=== PATIENT | male | born 1945 | race Caucasian/White ===

== ENCOUNTER → 2019-08-16 | Outpatient (CLI) | payer OTHER | LOC: SJCVCIMAG 12:41 | DX: I71.4 Abdominal aortic aneurysm, without rupture (principal); I65.21 Occlusion and stenosis of right carotid artery; R94.31 Abnormal electrocardiogram [ECG] [EKG]; I73.9 Peripheral vascular disease, unspecified; I25.10 Atherosclerotic heart disease of native coronary artery without angina pectoris; I10 Essential (primary) hypertension; E78.00 Pure hypercholesterolemia, unspecified; Z79.899 Other long term (current) drug therapy; Z82.49 Family history of ischemic heart disease and other diseases of the circulatory system; Z87.891 Personal history of nicotine dependence; Z95.828 Presence of other vascular implants and grafts ==

== ENCOUNTER 2020-04-06 18:45 | Inpatient (IN) | payer OTHER ==
[~2020-04-06] VITALS: Ht 177.8 cm; Wt 89.0 kg
--- NOTE | ~2020-04-06 | O ---
[address] [address] OPERATIVE REPORT Name: BARBY HOFFMAN Room #: 441-P [facility] IN M.R.#: [id number] Admission: 04/06/20 Attend Phys: Elkin Pedroza MD Discharge: Date of : 43 Report #: [id number] THIS REPORT FOR: cc: Dwayne Zelyaa,Pb Hall MD ~ CC: Elkin Zelaya DO DATE OF SERVICE: 04/14/2020 PRIMARY SURGEON: Pb Sainz MD PREOPERATIVE DIAGNOSES: 1. Chronic respiratory failure. 2. Acute onset dysphonia. 3. Right vocal cord paralysis. 4. Supplemental oxygen dependence. POSTOPERATIVE DIAGNOSES: 1. Chronic respiratory failure. 2. Acute onset dysphonia. 3. Right vocal cord paralysis. 4. Supplemental oxygen dependence. PROCEDURES PERFORMED: 1. Direct laryngoscopy with biopsy. 2. Rigid bronchoscopy. ANESTHESIA: General endotracheal anesthesia. ASSISTANTS: None. COMPLICATIONS: None. SPECIMENS: Right supraglottis. ESTIMATED BLOOD LOSS: Approximately 2 mL. INDICATIONS FOR THE PROCEDURE: The patient is a 75-year-old male with a long and complex medical history, who was admitted to the hospital approximately 1 week ago with acute worsening of his COPD and increasing hoarseness. A consultation was called for ear, nose and throat and a bedside flexible laryngoscopy revealed right vocal cord paralysis and slight fullness of the [address] [place] [address] OPERATIVE REPORT Name: BARBY HOFFMAN Room #: 441-P [facility] IN .R.#: [id number] Admission: 04/06/20 Attend Phys: Elkin Pedroza MD Discharge: Date of : 44 Report #: [id number] false vocal cord. Correlation with the CT scan of the neck also revealed thickness of the right false vocal cord and aryepiglottic fold prompting me to schedule him for the above named procedures. Consent was obtained. DESCRIPTION OF PROCEDURE: The patient was identified in the preoperative area before being transported to the operating room and placed supine on the operating table. At this point, propofol sedation was induced and a spontaneous ventilation rigid bronchoscopy was performed. The rigid ventilating bronchoscope was easily inserted through the patient's glottis. No obvious abnormality was seen at the level of the glottis, immediate subglottis or down to the level of the valdo. At this point, the rigid bronchoscope was removed and the patient was intubated with an 8.0 ET tube. Next. insertion of the Dedo laryngoscope into the oral cavity revealed very thick viscous secretions, which were suctioned free using laryngeal suction. A full intraoral oropharyngeal supraglottic, glottic and hypopharyngeal examination was performed, which did not reveal any obvious abnormalities. At this time, the laryngoscope was concentrated on the right supraglottis and false vocal cord area. There was slight fullness in this area; however, there were no obvious mucosal lesions; however, this was the area in question. Therefore, several cup forceps biopsies were taken along the anteroposterior length of the right false vocal cord and one specimen from the right aryepiglottic fold. These were passed off for permanent specimen. An Afrin-soaked cottonoid pledget was held in place for approximately 60 seconds time for hemostasis and at this time was removed. Further suctioning was performed followed by a final examination for hemostasis and for any other obvious lesions. There was none other that was identified. Therefore, the laryngoscope was removed and the patient was passed off back to anesthesia where he was successfully and safely reversed and transported to the PACU in stable condition. Please note that all instrument and sponge counts were correct x 2, and the patient was stable upon my departure from the room. DISPOSITION: The patient can be placed back on the medical floor under the care of his attending physician here in the hospital. Postoperative care can be dictated by the hospitalist as they see fit. There is no postoperative instructions that are necessary from my perspective. Permanent pathology will be reviewed of these specimens and will be reviewed with the patient once they are resulted. I will plan to follow up with the patient as an outpatient in approximately 7-14 days' time. The primary team may feel free to discharge the patient when they feel that he is stable and appropriate for discharge. No additional medications are necessary. Please provide operative summaries to my office, to the patient's primary care [address] [address] OPERATIVE REPORT Name: BARBY HOFFMAN Room #: 441-P [facility] IN M.R.#: [id number] Admission: 04/06/20 Attend Phys: Elkin Pedroza MD Discharge: Date of : 44 Report #: [id number] physician, Dr. Dwayne Zelaya and to the attending physician in[place], Dr. Elkin Pedroza. By: 1600 1624 Pb Sainz MD /arely
[~2020-04-06 18:45] MED LIST: ASPIRIN325 PO; EFFIENT10 MG PO; LIPITOR80 MG PO; LISINOPRIL10 MG PO; NORVASC 5 MG TAB5 MG PO; TOPROL XL25 MG PO
[2020-04-06 19:39] VITALS: BP 128/58
[2020-04-06 19:43] LABS: ABSOLUTE NEUTROPHILS 6.5 thou/uL (1.4-8.2); BASOPHILS 0.3 % (0.0-2.0); EOSINOPHILS 0.2 % (0.0-3.0); HEMATOCRIT 40.9 % (42.0-52.0); HEMOGLOBIN 13.9 gm/dL (14.0-18.0); LYMPHOCYTES 15.9 % (24.0-44.0); MCHC 33.9 g/dL (28.0-37.0); MCV 88.7 fL (80.0-100.0); MONOCYTES 8.4 % (1.0-8.0); PLATELET COUNT 221 thou/uL (150-400); POLYS 75.2 % (36.0-66.0); RBC 4.62 mil/uL (4.50-6.00); RDW 14.2 % (10.5-14.5); WBC 8.7 thou/uL (4.0-11.0)
[2020-04-06 19:59] LABS: ANION GAP 7 mmol/L (7-16); BUN 24 mg/dL (7-18); CALCIUM 9.1 mg/dL (8.5-10.1); CHLORIDE 103 mmol/L (98-107); CO2 29 mmol/L (21-32); CREATININE 1.3 mg/dL (0.7-1.3); GLUCOSE 194 mg/dL (74-106); POTASSIUM 3.3 mmol/L (3.5-5.1); SODIUM 139 mmol/L (136-145)
[2020-04-06 20:04] LABS: ALBUMIN 3.1 g/dL (3.4-5.0); SGOT 34 U/L (15-37); SGPT 34 U/L (30-65); TOTAL BILIRUBIN 1.7 mg/dL (0.2-1.0); TOTAL PROTEIN 7.8 g/dL (6.4-8.2); TROPONIN-I <0.06 ng/mL (<0.06)
[2020-04-06 21:34] LABS: APTT 40.7 Seconds (24.5-32.8); INR 1.2; PROTIME 12.8 Seconds (9.3-11.4)
[2020-04-06] MEDS ORDERED: ASA81BEC PO (21:38)
[2020-04-07] VITALS (7 sets, daily range): BP systolic 116–147; BP diastolic 42–71
[2020-04-07 07:12] LABS: HEMATOCRIT 39.8 % (42.0-52.0); HEMOGLOBIN 13.3 gm/dL (14.0-18.0); MCH 29.3 pg (26.0-34.0); MCHC 33.3 g/dL (28.0-37.0); RBC 4.53 mil/uL (4.50-6.00); RDW 14.2 % (10.5-14.5); WBC 4.9 thou/uL (4.0-11.0)
[2020-04-07 07:16] LABS: CALCIUM 8.8 mg/dL (8.5-10.1); CREATININE 1.2 mg/dL (0.7-1.3)
[2020-04-07 07:17] LABS: POTASSIUM 4.5 mmol/L (3.5-5.1)
--- NOTE | 2020-04-07 12:31 | EKG ---
[facility] [place] [address] ELECTROCARDIOGRAM REPORT Name: BARBY HOFFMAN Room #: 170-21 ADM IN M.R.#: [id number] Admission: 04/06/20 Attend Phys: Elkin Pedroza MD Discharge: Date of : 44 Report #: [id number] THIS REPORT FOR: cc: Dwayne Zelaya James A. DO Lundgren, Craig H. MD [facility] ~ THIS REPORT FOR: //name// [facility] ED Test Date: 2020-04-06 Test Time: 20:39:09 Pat Name: BARBY HOFFMAN Department: Room: 170 21 Gender: M Soft Boarder: BUTCHMSANA : 1945 Requested By: Elkin Pedroza Order Number: [id number] MD: Javier Neri Measurements Intervals [place] Rate: 78 P: 61 RI: 128 QRS: 25 QRSD: 116 T: 115 QT: 435 QTc: 496 Interpretive Statements Sinus rhythm Early R wave progression Nonspecific T abnormalities, lateral leads Compared to ECG 11/28/2012 07:38:01 T-wave abnormality now present Sinus bradycardia no longer present Electronically Signed On 04-07-2020 12:31:46 CDT by Javier Neri [email or web address] <ELECTRONICALLY SIGNED> By: Javier Neri MD, FACC 04/07/20 1231 38 38 Javier Neri MD, FACC /EPI
--- NOTE | 2020-04-07 16:51 | NUR ---
Admitted from ER due to SOA, transferred to bed safely. A+Ox4. Vital signs stable; O2 sat low- hooked pt to O2 at 2lpm via nasal cannula- informed RT as well. Admission assessment, history and education done; admission forms signed. On MS, not on telemetry; no complains of chest pain, crushing sensation and heaviness. On heart healthy diet- tolerating well; no nausea, no vomiting and no abdominal pain noted. With SL at L AC- on IV steroids. Up ad tacho. Assisted in ADLs. Daughter Charline updated re: pt's status; discussed to patient and daughter re: visitation policy- pt wanted daughter to be designated visitor- Charline agreed; informed re: visitation times as well, she is aware that no changes can be made afterwards. Skin intact. To continue monitoring patient.
--- NOTE | 2020-04-08 03:19 | NUR ---
PT WAS TRANSFERRED TO THE UNIT FROM CCU IN A STABLE CONDITION.PT DENIED PAIN.PT WAS NOTED TO HAVE SOB WITH EXERTION WITH ACTIVITY.PT VERY ADAMANT ON WALKING TO THE BR WAS EDUCATED TO USE THE BSC TO CONSERVE HIS ENERGY.PT ON 2L/NC.PT RECEIVING RX TX.NON PRODUCTIVE COUGH NOTED.PT RESTING ON HIS BED AT THIS TIME.CALL LIGHT WITHIN REACH.
[2020-04-08 05:23] VITALS: BP 123/57
[2020-04-08 07:30] VITALS: BP 125/45
[2020-04-08 13:57] VITALS: BP 125/53
[2020-04-08 16:30] VITALS: BP 115/41
--- NOTE | 2020-04-08 17:00 | NUR ---
ASSUMED CARE OF PT AT 0700. PT IS A&OX4 AND VITAL SIGNS ARE STABLE. PT ON 2-3L OF O2 THIS SHIFT. SITTING UP AT EDGE OF BED. DAUGHTER AT BEDSIDE THIS SHIFT, AND IS CONCERNED ABOUT DISCHARGE, REPORTS PT UNABLE TO DO MOST OF HIS OWN CARES AT HOME AND LIVES ALONE. IV TO LEFT AC PATENT. INSULIN ORDERD FOR ELEVATED BG. DAUGHTER OZZIE LIVING WILL TO UNIT AND PT REQUESTED TO HAVE CODE STATUS CHANGED TO DNR. PROVIDER MADE AWARE OF REQUEST AND CHANGED ORDER. FALL PRECAUTIONS IN PLACE AND NURSING WILL CONTINUE TO MONITOR.
[2020-04-08 19:34] VITALS: BP 127/60
--- NOTE | 2020-04-09 03:56 | NUR ---
ASSUMED PT'S CARE THIS PM SHIFT. PT ALERT AND ORIENTED. VSS ON 2L. PT TOOK MEDS PER EMAR. DENIES PAIN THIS SHIFT. SOA ON EXERTION. PT OCCASSIONALLY SITS AT THE EGDE OF BED FOR COMFORT BUT DOES BNOT SO ATTEMPT TO GET UP ON HIS OWN. EDUCATION REINFORCED ON FALL PREVENTION. FALL PRECAUTION IN PLACE. WILL CONTINUE TO MONITOR.
[2020-04-09 05:27] LABS: HEMATOCRIT 43.4 % (42.0-52.0); HEMOGLOBIN 14.4 gm/dL (14.0-18.0); MCH 29.5 pg (26.0-34.0); MCHC 33.1 g/dL (28.0-37.0); MCV 88.9 fL (80.0-100.0); RBC 4.88 mil/uL (4.50-6.00); RDW 14.6 % (10.5-14.5)
[2020-04-09 05:29] LABS: CALCIUM 9.1 mg/dL (8.5-10.1); CREATININE 1.3 mg/dL (0.7-1.3); MAGNESIUM 2.4 mg/dL (1.8-2.4)
[2020-04-09 05:40] LABS: POTASSIUM 4.1 mmol/L (3.5-5.1)
[2020-04-09 08:14] VITALS: BP 133/43
--- NOTE | 2020-04-09 15:13 | NUR ---
Assumed care of pt at 0700. Pt a&ox4. Sitting in the chair. Crackles heard. On 2L O2. Denies pain. Talked to pt's family and updated on pt's status. Call light within reach. Will continue to monitor.
[2020-04-09 15:44] VITALS: BP 126/42
[2020-04-09 19:28] VITALS: BP 136/66
[2020-04-09 21:12] VITALS: BP 136/66
[2020-04-10 03:59] VITALS: BP 127/55
--- NOTE | 2020-04-10 07:31 | NUR ---
PT AOX4. PT REPORTS 2/10 PAIN IN BOTH NARES DUE TO NASAL CANNULA USE. SALINE PROVIDED, PT REPORTS IMMEDIATE RELIEF. RT NOTIFIED, HUMIDIFIER TO BE APPLIED. PT HAS PRN PO APAP Q4HR AVAILABLE. PT REPORTS SOB AT REST AND WITH EXERTION WHILE ON 2L VIA NASAL CANNULA. PT NOTED TO HAVE PURSED LIP BREATHING. PT MAINTAINS UPRIGHT POSITION IN BED AND IN CHAIR. PT AMBULATES WITH STANDBY ASSIST FROM CHAIR TO BED. PT VOIDING PER URINAL. PT TOLERATING PO INTAKE OF FLUIDS AND HEART HEALTHY DIET. PT ENCOURAGED TO NOTIFY STAFF FOR ALL NEEDS. CALL LIGHT WITHIN REACH, BED ALARM ON, BED IN LOWEST POSITION, FREQUENT MONITORING WILL CONTINUE.
[2020-04-10 07:47] VITALS: BP 158/73
--- NOTE | 2020-04-10 11:38 | NUR ---
Assumed care of pt at 0700. Pt a&ox4. SOB with exersion. Denies pain. On 2L O2. Case management consulted. Chest x-ray ordered. Scheduled breathing treatments. Call light within reach. Will continue to monitor.
--- NOTE | 2020-04-10 15:25 | NUR ---
PT ADMITTED RELATED TO COPD EXACERBATION. CM REVIEWED CHART AND SPOKE WITH CARE TEAM. CM MET WITH PT AT BEDSIDE THIS DAY. PT APPEARED TO BE A&O X4. CM ROLE INTRODUCED. PT INDICATED HE LIVES ALONE IN A SPLIT LEVEL HOUSE WITH 6 STEPS TO ENTER THROUGH THE GARAGE AND A FEW STEPS BETWEEN EACH LEVEL INSIDE. 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 PT INDICATED NO DME, NO HH, HX ,AND NO SNF HX. PT INDICATED THAT HE ANTICIPATES RETURNING HOME ONCE MEDICALLY STABLE. CM CALLED AND SPOKE WITH PT'S DTR PER HER REQUEST. SHE INDICATED THAT PT DOESN'T SHOWER REGULARLY SHE AND HER BROTHER WOULD LIKE AND THAT HE HAS A NEBULIZER BUT THAT HE DOSN'T USE IT. CM INDICATED THAT CM HAD PROVIDED PT WITH A SNF LIST IF IT IS RECOMMEND HE PROGRESSESS. PT DOESN'T HAVE ANY HOME O2. CM TO FOLLOW INDICATED WITH DC PLANNING.
[2020-04-10 16:00] VITALS: BP 138/62
[2020-04-10 19:00] VITALS: BP 153/76
[2020-04-11 00:06] LABS: GLYCOHEMOGLOBIN (HGB A1C) 6.7 % (4.8-5.6)
[2020-04-11 03:54] VITALS: BP 141/47
--- NOTE | 2020-04-11 06:16 | NUR ---
ASSUMED CARE OF PT AT 1900HRS. PT AOX3-4 AND LETS NEEDS BE KNOWN. FALL PRECAUTION IN PLACE. 2L O2 VIA NC CONTINUED. PT DENIED PAIN OR NAUSEA. ASSESSMENT CHARTED. PT WAS ABLE TO GET COMFORTABLE AND SLEEP PART OF THE SHIFT. VSS AND NO S/S OF ACUTE DISTRESS. WILL CONTINUE TO MONITOR.
[2020-04-11 08:00] VITALS: BP 146/68
[2020-04-11 12:59] LABS: HEMATOCRIT 47.6 % (42.0-52.0); HEMOGLOBIN 15.6 gm/dL (14.0-18.0); MCHC 32.7 g/dL (28.0-37.0); MCV 88.8 fL (80.0-100.0); PLATELET COUNT 271 thou/uL (150-400); RBC 5.37 mil/uL (4.50-6.00); RDW 14.3 % (10.5-14.5); WBC 14.3 thou/uL (4.0-11.0)
[2020-04-11 13:10] LABS: CALCIUM 9.4 mg/dL (8.5-10.1); CREATININE 1.4 mg/dL (0.7-1.3); POTASSIUM 4.1 mmol/L (3.5-5.1); TOTAL BILIRUBIN 1.1 mg/dL (0.2-1.0); TOTAL PROTEIN 7.6 g/dL (6.4-8.2)
[2020-04-11 13:25] LABS: ABSOLUTE NEUTROPHILS 12.7 thou/uL (1.4-8.2)
--- NOTE | 2020-04-11 14:31 | NUR ---
ON-GOING ASSESSMENT: CM REVIEWED CHART AND SPOKE WITH ATTENDING. PT IS NOT CURRENTLY IMPROVING AND IS ON IV ANBX AND IV STEROIDS. PULM HAS BEEN CONSULTED FOR ASSISTANCE. PT CONTINUES TO WORK WITH THERAPIES. CM WILL CONTINUE TO FOLLOW TO ASSIST NEEDED.
[2020-04-11 17:00] VITALS: BP 125/60
[2020-04-11 17:22] LABS: BE(vivo) 2.6 mmol/L (-2 to +3); HCO3 26.5 mmol/L (22.0-26.0); PCO2 38.8 mmHg (35.0-45.0); PO2 82.5 mmHg (80.0-100.0); pH 7.453 (7.360-7.450); sO2 96.6 % (92.0-98.0)
--- NOTE | 2020-04-11 18:45 | NUR ---
PT ASSESSED AT START OF SHIFT. O2 3L/ NC. RT TX SCHEDULED. SITS UP ON SIDE OF BED TO BREATHE BETTER. BREATHING NOT LABORED BUT PT NOT COMFORTABLE. AMBULATED W/ THERAPY IN THE ROOM AND THEN SAT UP IN THE RECLINER ALL AFTERNOON. ENC TO DRINK MORE WATER PT NOT LIKING TO DRINK. USING URINAL. POOR APPETITE. CONSULT PUT IN FOR DR. LATHAM TO SEE PT TODAY RE PERSISTENT INFILTRATES. DTR CALLED FOR UPDATE IN PT CONDITION AND WILL VISIT TOMORROW.
[2020-04-11 19:40] VITALS: BP 125/64
--- NOTE | 2020-04-12 04:21 | NUR ---
PT WAS OBSERVED SITTING UP IN THE RECLINER IN HIS ROOM WITH HIS HEAD BENT OVER THE SIDE TABLE.PT ON 3L/NC.PT WITH PRODUCTIVE COUGH,CLEAR IN COLOR.PT ON STEROIDS,BG MONITORED AT HS WITH COVERAGE GIVEN.PT STIL RECEIVING RT TX.PT SLEEPING ON HIS BED AT THIS TIME.URINAL AT BED SIDE.UA AND SPUTUM CX OBTAINED AND SENT TO THE LAB.CALL LIGHT WITHIN REACH.
[2020-04-12 07:08] VITALS: BP 142/76
[2020-04-12 11:09] LABS: HEMATOCRIT 46.5 % (42.0-52.0); HEMOGLOBIN 15.2 gm/dL (14.0-18.0); MCH 29.1 pg (26.0-34.0); MCHC 32.7 g/dL (28.0-37.0); MCV 88.9 fL (80.0-100.0); RBC 5.23 mil/uL (4.50-6.00); RDW 14.4 % (10.5-14.5); WBC 15.1 thou/uL (4.0-11.0)
[2020-04-12 11:13] LABS: POTASSIUM 4.5 mmol/L (3.5-5.1)
--- NOTE | 2020-04-12 12:03 | 2DMMODE ---
[address] [address] 2 D/M-MODE ECHOCARDIOGRAM Name: BARBY HOFFMAN Room #: 441-P ADM IN M.R.#: [id number] Admission: 04/06/20 Attend Phys: Elkin Pedroza MD Discharge: Date of : 44 Report #: [id number] THIS REPORT FOR: cc: Dwayne Zelaya James A. DO Park, Jin S. MD ~ APPROVED REPORT Study performed: 04/12/2020 09:14:18 EXAM: Comprehensive 2D, Doppler, and color-flow Echocardiogram Patient Location: Bedside Room #: [facility] Status: routine BSA: 2.09 HR: 80 bpm BP: 146/76 mmHg Other Information Study Quality: Technically Difficult Technically limited study due to lung disease, inability to position patient. Indications COPD CAD Hypertension/HDD R^O Endocarditis Tricuspid Valve PA Pressure: 46.00 mmHg Left Ventricle The left ventricle is normal size. There is normal LV segmental wall motion. There is normal left ventricular wall thickness. The left ventricular systolic function is normal. The left ventricular ejection fraction is within the normal range. LVEF is 55-60%. Grade I - abnormal relaxation pattern. Right Ventricle The right ventricle is normal size. The right ventricular systolic function is normal. [facility] [address] [address] 2 D/M-MODE ECHOCARDIOGRAM Name: BARBY HOFFMAN Room #: 441-P ADM IN M.R.#: [id number] Admission: 04/06/20 Attend Phys: Yao Radford Discharge: Date of : 44 Report #: [id number] Left atrium is at the upper limits of normal. The right atrium size is normal. Aortic Valve The aortic valve is normal in structure. Trace aortic regurgitation. There is no aortic valvular stenosis. Mitral Valve The mitral valve is normal in structure. There is no mitral valve regurgitation noted. No evidence of mitral valve stenosis. Tricuspid Valve The tricuspid valve is normal in structure. There is mild tricuspid regurgitation. Estimated PAP 43 mmHg. Pulmonic Valve The pulmonary valve is normal in structure. There is no pulmonic valvular regurgitation. Great Vessels The aortic root is normal in size. IVC is not well visualized. Pericardium There is no pericardial effusion. <Conclusion> The left ventricle is normal size. There is normal left ventricular wall thickness. The left ventricular systolic function is normal. Grade I - abnormal relaxation pattern. The right ventricle is normal size. Trace aortic regurgitation. There is no mitral valve regurgitation noted. There is mild tricuspid regurgitation. Estimated PAP 43 mmHg. <ELECTRONICALLY SIGNED> By: Jarad Sage MD 04/12/203 02 1203 Jarad Sage MD /INF
--- NOTE | 2020-04-12 12:55 | EKG ---
[facility] [place] [address] ELECTROCARDIOGRAM REPORT Name: BARBY HOFFMAN Room #: 441-P ADM IN M.R.#: [id number] Admission: 04/06/20 Attend Phys: Elkin Pedroza MD Discharge: Date of : 44 Report #: [id number] THIS REPORT FOR: cc: Dwayne Zelaya James A. 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1945 Requested By: Quinton Wilburn Order Number: [id number] MD: Javier Neri Measurements Intervals [place] Rate: 65 P: 73 HI: 126 QRS: 29 QRSD: 90 T: 197 QT: 411 QTc: 428 Interpretive Statements Sinus rhythm Abnormal R-wave progression, early transition Borderline repolarization abnormality Compared to ECG 04/06/2020 20:39:09 No significant change was found Electronically Signed On 04-12-2020 12:55:35 CDT by Javier Neri [email or web address] <ELECTRONICALLY SIGNED> By: Javier Neri MD, [facility] 04/12/20 1255 1115 1115 Javier Neri MD, [facility] /EPI
--- NOTE | 2020-04-12 14:10 | NUR ---
ON-GOING ASSESSMENT: CM REVIEWED CHART AND SPOKE WT ATTENDING. PT REMAINS ON IV STEROIDS AND IV ANTIBIOTICS. PT REMAINS ON 3L OXYGEN AND DOES NOT HAVE ANY AT HOME. PT WILL CONTINUE TO WORK WITH THERAPIES AND LIKELY HOME WITH HH AND POSSIBEL NEED OF OXYGEN AT DISCHARGE. CM WILL CONTINUE TO FOLLOW TO ASSIST NEEDED.
[2020-04-12 15:42] VITALS: BP 136/62
--- NOTE | 2020-04-12 16:22 | NUR ---
PT ALERT AND ORIENTED TIMES THREE WITH PERIODS OF CONFUSION. VSS, O2 3L. PT DENIES PAIN. PT TOLERATES MEDS, EATS SMALL PORTIONS OF MEALS. PT UP TO THE BSC WITH ASSIST OF ONE. PT DAUGHTER AT BEDSIDE FOR SOME PART OF THE SHIFT. WILL CONTINUE TO MONITOR.
[2020-04-12 18:40] VITALS: BP 138/85
[2020-04-12 20:36] LABS: URINE BILIRUBIN NEGATIVE (Negative); URINE BLOOD NEGATIVE (Negative); URINE CLARITY CLEAR; URINE COLOR YELLOW; URINE GLUCOSE-RANDOM* NEGATIVE (Negative); URINE KETONES NEGATIVE (Negative); URINE LEUKOCYTES-REFLEX NEGATIVE (Negative); URINE NITRITE-REFLEX NEGATIVE (Negative); URINE PROTEIN (DIPSTICK) NEGATIVE (Negative); URINE SPECIFIC GRAVITY 1.025 (1.005-1.035); URINE UROBILINOGEN 0.2 E.U./dl (0.2-1.0)
--- NOTE | 2020-04-13 01:37 | NUR ---
PT DENIED PAIN SO FAR.DYSPNEA/SOB NOTED WITH ACTIVITY.PT ON 3L/NC.PT CONT ON RT TX.SKIN TEAR TO HIS R ELBOW,DRSG DRY AND INTACT.MULTIPLE BRUISING TO HIS BUE.PT ABLE TO MAKE HIS NEEDS KNOWN.UA SENT TO LAB.CALL LIGHT WITHIN REACH.
[2020-04-13 03:58] VITALS: BP 140/55
[2020-04-13 06:25] LABS: HEMATOCRIT 49.1 % (42.0-52.0); HEMOGLOBIN 15.7 gm/dL (14.0-18.0); MCH 28.6 pg (26.0-34.0); MCHC 31.9 g/dL (28.0-37.0); MCV 89.6 fL (80.0-100.0); RBC 5.48 mil/uL (4.50-6.00); RDW 14.4 % (10.5-14.5)
[2020-04-13 06:40] LABS: CALCIUM 8.8 mg/dL (8.5-10.1); CREATININE 1.6 mg/dL (0.7-1.3); POTASSIUM 3.9 mmol/L (3.5-5.1)
[2020-04-13 10:35] VITALS: BP 157/49
[2020-04-13 14:59] LABS: APTT 29.2 Seconds (24.5-32.8); INR 1.3; PROTIME 13.4 Seconds (9.3-11.4)
--- NOTE | 2020-04-13 15:59 | NUR ---
PT CARE ASSUNMED 0700. A&Ox4. DNR. USES URINAL. PT GETS VERY EXHAUSTED AND SOB WITH THE SMALLEST AMOUNT OF ACTIVITY. RT ON BOARD. IV PATENT WITH NO REDNESS OR EDEMA, FLUIDS INFUSING. ON 3L O2. ACHS ON MODERATE SCALE WITH COVERAGE NEEDED DUE TO IV STEROIDS. CT ORDERED OF THE NECK, SEE IMAGING FOR RESULTS. ENT CONSULTED. BRONCOSCOPY SCHEDULED FOR TOMORROW (04/14) LUNGS COARSE AND DIMISHED. FALL PROTOCOL IN PLACE. CALL LIGHT IN REACH. WILL CONTINUE TO MONITOR.
[2020-04-13 16:33] VITALS: BP 139/64
[2020-04-13 19:59] VITALS: BP 123/51
[2020-04-14 04:26] VITALS: BP 112/89
--- NOTE | 2020-04-14 04:58 | NUR ---
Assumed care on 04/13/20 @ 19:30, noted to be breathless with exertion. VSS Speaks in a low voice, difficult to understand and the effort tires him. Breath sounds course and diminished bilat. Heart rate s1s2 noted. NPO after midnight for biopsy on 04/14. Patient agreed to a [place] for nutrition, as eating exhausts him. IV site Left AC and Right AC. Antibiotics tolerated. Frequently sits up and leans over the bedside table, which patient reports helps him breath. Acucheck 249, 10 units of Sliding scale provided for coverage.
[2020-04-14 07:55] VITALS: BP 127/28
[2020-04-14 08:11] VITALS: BP 132/42
[2020-04-14 10:10] LABS: HEMATOCRIT 41.1 % (42.0-52.0); MCH 28.5 pg (26.0-34.0); MCHC 31.8 g/dL (28.0-37.0); MCV 89.6 fL (80.0-100.0); RBC 4.59 mil/uL (4.50-6.00); RDW 14.2 % (10.5-14.5); WBC 23.9 thou/uL (4.0-11.0)
[2020-04-14 10:20] LABS: HEMOGLOBIN 13.1 gm/dL (14.0-18.0)
--- NOTE | 2020-04-14 10:22 | NUR ---
LAB CALLED HGB = 13.1 TODAY. 04/13/20 WAS 15.7 WILL PASS TO PATIENTS NURSE WHO IS OFF THE FLOOR.
[2020-04-14 10:29] LABS: CALCIUM 8.7 mg/dL (8.5-10.1); CREATININE 1.9 mg/dL (0.7-1.3); POTASSIUM 3.5 mmol/L (3.5-5.1)
--- NOTE | 2020-04-14 12:22 | NUR ---
PT CARE ASSUMED AT 0700. A&Ox4. PT UPSET ABOUT NOT BEING ABLE TO HAVE ANYTHING TO DRINK DUE TO HIS NPO STATUS FOR HIS BIOPSY LATER TODAY. PT TRIES TO GET SOMETHING TO DRINK FROM EVERY STAFF MEMBER THAT HE CAN TRY AND TALK INTO. PT REEDUCATED. LUNGS ARE COARSE AND DIMINISHED. IV PATENT WITH NO REDNESS OR EDEMA. FALL PROTOCOL IN PLACE. SKIN TEAR ON R. ELBOW, PICTURE ON CHART. CALL RECEIVED FROM LAB, TB IS NOT ABLE TO BE DRAWN UNTIL FRIDAY. DNR. CALL LIGHT IN REACH. WILL CONTINUE TO MONITOR.
--- NOTE | 2020-04-14 13:54 | HC ---
[facility] [place] [address] CONSULTATION Name: BARBY HOFFMAN Room #: 441-[facility] IN M.R.#: [id number] Admission: 04/06/20 Attend Phys: Elkin Pedroza MD Discharge: Date of : 43 Report #: [id number] THIS REPORT FOR: cc: Dwayne Zelaya James A. DO Barry, Joseph W. MD ~ DATE OF SERVICE: 04/13/2020 INFECTIOUS DISEASE CONSULTATION ATTENDING PHYSICIAN: Dr. Pedroza. REASON FOR EVALUATION: Pneumonitis. HISTORY OF PRESENT ILLNESS: Chart reviewed, patient examined. This is a 75-year-old with fairly extensive medical history, has known underlying COPD, previous history of lung cancer several years ago, previous right upper lobectomy, presented with progressive dyspnea and chronic cough, somewhat productive and some hoarseness as well, had been evaluated with imaging, has question of some sided pneumonitis. Sputum culture has been otherwise unrevealing. Urinary antigens were unremarkable as well. He is quite lethargic, difficult to ascertain the degree of any particular pain and empirically started on combination therapy with piperacillin and tazobactam. Did undergo a laryngoscopy, was found to have an impaired right vocal cord. He is scheduled to undergo bronchoscopy on 04/14/2020. ALLERGIES: None known. MEDICATIONS: Include guaifenesin, ipratropium, albuterol inhaler, Zosyn, methylprednisolone, baclofen, insulin lispro, aspirin, lisinopril, amlodipine, atorvastatin, Prasugrel, enoxaparin, p.r.n. analgesics and antiemetics. PAST MEDICAL HISTORY: As above, known history of COPD, has known atherosclerotic coronary artery disease with previous stenting, acute myocardial infarction, history of lung cancer with right upper lobectomy, hypertension, chronic back and neck pain, history of arthritis. SOCIAL HISTORY: Former smoker, past ethanol, no illicit drug use. FAMILY HISTORY: Noncontributory. REVIEW OF SYSTEMS: As above. PHYSICAL EXAMINATION: [facility] [address] [place] [address] CONSULTATION Name: DALTONBARBY KHAN Room #: [facility] IN ..#: [id number] Admission: 04/06/20 Attend Phys: Elkin Pedroza MD Discharge: Date of : 43 Report #: [id number] GENERAL: He is chronically ill appearing. His voice is quite hoarse, barely audible, chronically undernourished. VITAL SIGNS: Temperature 97.5, pulse 75, respirations 22, and blood pressure 157/49. SKIN: Warm, dry, no rashes. HEENT: Normocephalic. Extraocular muscles are intact. NECK: Supple. LUNGS: Somewhat tight, some wheezes. Coarse breath sounds, diminished overall on the right upper portion. ABDOMEN: Mildly distended, soft, nontender. EXTREMITIES: No cyanosis. GENITOURINARY AND RECTAL: Deferred. LABORATORY DATA: CT of the neck, thickening of the right aryepiglottic fold extending to the upper margin of the right vocal cord nodule, interstitial infiltrate is present in the right upper lobe. No definite adenopathy. Sputum culture is in progress. Gram stain showed polymicrobial evidence including gram-negative rods, gram-positive rods and gram-positive cocci. Blood cultures are sterile thus far. Procalcitonin is 0.08. Chest x-ray showed interstitial opacity throughout the right middle and right lower lobe consistent with pneumonia. Legionella urinary antigen and streptococcal pneumonia antigen were both negative. Electrolytes: Sodium 143, potassium 3.9, chloride 103, bicarbonate is 26, anion gap of 14, BUN and creatinine 63 and 1.6. CBC: White count of 17.0, H and H 15.7 and 49.1, and platelets 269. Urinalysis is unremarkable. Echo showed left ventricular size is normal. Trace aortic regurgitation, no mitral valve regurgitation. ABGs from yesterday showed pH 7.453, pCO2 of 38.8, pO2 of 82.5 on 3 liters. Hemoglobin A1c of 6.7. CT of the chest, extensive nodular infiltrate throughout the right lung field perihilar region of the left lung. ASSESSMENT AND PLAN: Pneumonitis, complicated by respiratory failure. It is difficult to know whether there has been any exposure history, cannot define such. Certainly, he appears chronically ill, marginal degree of immunosuppression as well, has been on several days of piperacillin/tazobactam. It is not clear that he has worsened, but has not improved. I noted plans for bronchoscopy, I think it is reasonable. We would send for only bacterial as well as fungal and AFB. We will do some additional testing in the interim. I think therapy at this point is reasonable. I think we could add some atypical coverage. His prognosis appears somewhat guarded. I will discuss with Dr. Hunter. [address] [place] [address] CONSULTATION Name: BARBY HOFFMAN Room #: 441-P ADM IN M.R.#: [id number] Admission: 04/06/20 Attend Phys: Elkin Pedroza MD Discharge: Date of : 43 Report #: [id number] Thank you. <ELECTRONICALLY SIGNED> By: Mynor Palacios MD 04/14/20 1354 1610 2059 Mynor Palacios MD /nt
--- NOTE | 2020-04-14 13:58 | NUR ---
ON-GOING ASSESSMENT: CM REVIEWED CHART AND SPOKE WITH BEDSIDE RN. SHE REPORTS PT IS TO HAVE BIOPSY TODAY AND THEN LIKELY BRONCH ON FRIDAY. PT IS STILL ON IV ANBX AND IV STEROIDS AND REQUIRING OXYGEN. NO PLANS FOR WEEKEND DISCHARGE. CM WILL CONTINUE TO FOLLOW TO ASSIST NEEDED.
[2020-04-14 15:09] VITALS: BP 130/82
[2020-04-14 19:48] VITALS: BP 124/42
--- NOTE | 2020-04-15 02:29 | NUR ---
ASSUMED PT CARE AT 1915. PT IS A&OX4. PT HAS FLUIDS RUNNING INTO THE RIGHT AC. PT RESPONDS LITTLE NECESSARY. FLAT AFFECT. PT USES URINAL AT BEDSIDE. PT TAKES MEDS WHOLE BUT STRUGGLES TO GET PILLS DOWN. PT COUGHS UP A GUAIFENESIN AND REFUSES TO TAKE IT. PT STATES THAT HE IS IN PAIN BUT DOES NOT THINK THE TYLENOL WILL HELP. PT DOES NOT WANT TO TAKE ANY MORE MEDS. PT SITS ON THE SIDE OF THE BED AND DOES NOT CALL OUT WHEN HE NEEDS TO USE THE RESTROOM. PT HAS SCD'S ON IN THE BED. WILL CONTINUE TO MONITOR.
[2020-04-15 03:45] VITALS: BP 149/65
[2020-04-15 08:00] VITALS: BP 158/74
[2020-04-15 09:45] LABS: HEMATOCRIT 40.7 % (42.0-52.0); HEMOGLOBIN 12.8 gm/dL (14.0-18.0); MCH 28.6 pg (26.0-34.0); MCHC 31.4 g/dL (28.0-37.0); MCV 91.1 fL (80.0-100.0); RBC 4.47 mil/uL (4.50-6.00); RDW 14.4 % (10.5-14.5); WBC 16.7 thou/uL (4.0-11.0)
[2020-04-15 09:52] LABS: CALCIUM 8.1 mg/dL (8.5-10.1); CREATININE 1.5 mg/dL (0.7-1.3); MAGNESIUM 3.1 mg/dL (1.8-2.4); POTASSIUM 4.3 mmol/L (3.5-5.1)
--- NOTE | 2020-04-15 11:22 | NUR ---
PT CARE ASSUMED AT 0700. A&Ox4. PT SITTING AT THE EDGE OF HIS BED CONTINUING TO BREATH HEAVY. ACHS DUE TO STEROID NEED. SKIN TEAR ON R. ELBOW OPEN TO AIR. SCABBED OVER. ON 2L O2. IV PATENT WITH NO REDNESS OR EDEMA, FLUIDS INFUSING. PT REQUESTED TO HAVE HIS MEDS CRUSHED SINCE HE IS STRUGGLING TO SWALLOW. PT CONTINUES TO BE TACHYCARDIC AND TACHYPNIC. PT DOES NOT COMPLY WITH FALL PROTOCOL IN PLACE. CALL LIGHT IN REACH. WILL CONTINUE TO MONITOR. SPOKE WITH DAUGHTER AND GAVE HER AN UPDATE. DAUGHTER WOULD LIKE THE HOSPITALIST TO GIVE HER A CALL.
[2020-04-15 20:38] VITALS: BP 130/59
[2020-04-16 05:16] VITALS: BP 138/61
--- NOTE | 2020-04-16 05:28 | NUR ---
PT TRANSFERRING TO BEDSIDE COMMODE AND IS TOLERATING FAIR. DENIES PAIN. NO NEEDS VOICED. FREQUENT OBSERVATION.
[2020-04-16 05:50] LABS: HEMATOCRIT 38.8 % (42.0-52.0); HEMOGLOBIN 12.5 gm/dL (14.0-18.0); MCH 28.5 pg (26.0-34.0); MCHC 32.2 g/dL (28.0-37.0); MCV 88.3 fL (80.0-100.0); RBC 4.39 mil/uL (4.50-6.00); WBC 16.4 thou/uL (4.0-11.0)
[2020-04-16 05:58] LABS: CALCIUM 8.3 mg/dL (8.5-10.1); CREATININE 1.6 mg/dL (0.7-1.3); MAGNESIUM 3.2 mg/dL (1.8-2.4); POTASSIUM 3.6 mmol/L (3.5-5.1)
[2020-04-16 07:25] VITALS: BP 140/69
[2020-04-16 12:11] LABS: BE(vivo) 0.2 mmol/L (-2 to +3); HCO3 23.8 mmol/L (22.0-26.0); PCO2 35.1 mmHg (35.0-45.0); pH 7.449 (7.360-7.450)
--- NOTE | 2020-04-16 13:21 | NUR ---
PT CARE ASSUMED AT 0700. A&Ox4. PT VERY LETHARGIC, TACHYPNIC AT 32 AND TACHY AT 103. O2 AT 4L ON 100%. PT CONTINUES TO EASILY FATIGUE. DR. IGLESIAS INFORMED AND CHEST XRAY ORDERED AND RECHECK RR IN ONE HOUR. AT RECHECK PT WAS RR 29. ABGS DRAWN.DR. IGLESIAS INFORMED AND TRANSFER TO CCU ORDERED. PT WILL TRANSFER TO RM 211. DAUGHTER CALLED AND UPDATED. IV PATENT WITH NO REDNESS OR EDEMA, SALINE LOCKED. FALL PROTOCOL IN PLACE. PT REFUSES SCD'S. CALL LIGHT IN REACH. WILL CONTINUE TO MONITOR.
[2020-04-16 14:30] VITALS: BP 146/59
[2020-04-16 15:55] VITALS: BP 146/59
--- NOTE | 2020-04-16 17:46 | NUR ---
PT CARE ASSUMED AT 1415. ASSESSMENT CHARTED. MEDICATION CHARTED. PT IS A TRANSFER FROM [facility]. COVID NEGATIVE X 3. USES BSC; WITHOUT IFORMING RN. RAC IV; PPN. ALEXA IV; PIPERACILLIN AND LEVOFLOXACIN. ACHS; STEROIDS. AFEBRILE. FREQUENT PRODUCTIVE COUGH.
[2020-04-16 20:46] VITALS: BP 131/46
[2020-04-17 00:20] VITALS: BP 125/105
--- NOTE | 2020-04-17 04:59 | NUR ---
ASSESSMENT DOCUMENTED.PT BEEN RESTING IN NO ACUTE DISTRESS AT THIS TIME.A/OX4.VSS.REMAINS ON O2 AT 3LITERS PNC.NOTED DYSPNEA ON EXERTION.NEB TX PER RT.PT C/O PAIN TO BACK,TYLENOL WAS GIVEN WITH NO RELIEF.GROOMING SALON MANAGER NOTIFIED,ORDERED TRAMADOL,TRAMADOL WAS GIVEN,PT VOICED MUCH RELIEF.PT REQUESTED TO CHANGE HIS DNR STATUS TO FULL CODE.PT DISCUSSED WITH HER DAUGHTER JODIE WHO AGREED WITH HER DAD DECISION TO CHANGE HIS CODE STATUS.JOSÉ MENDOZA WAS NOTIFIED,ORDER WAS GIVEN TO CHANGE CODE STATUS FROM DNR TO FULL CODE.REMAIN ON PPN INFUSION AND ANTIBIOTICS.TOLERATING.NO OTHER CONCERNS NOTED AT THIS TIME.WILL CONT TO MONITOR PER POC.
[2020-04-17 05:46] VITALS: BP 138/57
[2020-04-17 08:30] VITALS: BP 129/50
--- NOTE | 2020-04-17 11:05 | NUR ---
SOMNOLENT. NONVERBAL D/T PARALYZED VOCAL CORDS. COMPLETE CARES. INCONTINENT OF STOOL AND URINE. CAN ONLY STAND WORKING WITH PT, SOA MINIMAL ACTIVITY. SR/ST PER TELE. FALL PRECAUTIONS IN PLACE. WILL CONTINUE TO FOLLOW.
[2020-04-17 13:21] LABS: HEMATOCRIT 34.8 % (42.0-52.0); HEMOGLOBIN 11.2 gm/dL (14.0-18.0); MCH 28.9 pg (26.0-34.0); MCHC 32.2 g/dL (28.0-37.0); MCV 89.8 fL (80.0-100.0); RBC 3.88 mil/uL (4.50-6.00); RDW 14.2 % (10.5-14.5); WBC 23.5 thou/uL (4.0-11.0)
[2020-04-17 13:29] LABS: CALCIUM 8.4 mg/dL (8.5-10.1); CREATININE 2.1 mg/dL (0.7-1.3); MAGNESIUM 3.7 mg/dL (1.8-2.4); POTASSIUM 3.4 mmol/L (3.5-5.1)
[2020-04-17 20:12] VITALS: BP 90/52
[2020-04-17 23:00] VITALS: BP 122/56
[2020-04-17 23:23] LABS: HEMATOCRIT 31.7 % (42.0-52.0); HEMOGLOBIN 10.4 gm/dL (14.0-18.0); MCH 29.1 pg (26.0-34.0); MCHC 32.8 g/dL (28.0-37.0); MCV 88.7 fL (80.0-100.0); RBC 3.57 mil/uL (4.50-6.00); RDW 14.2 % (10.5-14.5); WBC 21.2 thou/uL (4.0-11.0)
[2020-04-17 23:36] LABS: CALCIUM 8.2 mg/dL (8.5-10.1); CREATININE 1.8 mg/dL (0.7-1.3)
[2020-04-18] VITALS (35 sets, daily range): BP systolic 86–163; BP diastolic 39–83
[2020-04-18 02:47] LABS: HEMATOCRIT 36.4 % (42.0-52.0); HEMOGLOBIN 11.3 gm/dL (14.0-18.0); MCH 28.3 pg (26.0-34.0); MCHC 31.1 g/dL (28.0-37.0); MCV 90.9 fL (80.0-100.0); RDW 14.3 % (10.5-14.5); WBC 26.8 thou/uL (4.0-11.0)
[2020-04-18 02:52] LABS: CALCIUM 8.5 mg/dL (8.5-10.1); CREATININE 1.9 mg/dL (0.7-1.3); MAGNESIUM 3.6 mg/dL (1.8-2.4); POTASSIUM 3.8 mmol/L (3.5-5.1)
--- NOTE | 2020-04-18 03:20 | NUR ---
SCRUB TECHNICIAN ACTIVATED FOR HEMATEMESIS. SOFT METALS HAND ENGRAVER AT BEDSIDE FOR INITIAL EVAL AND CALL PLACED TO FAMILY TO DISCUSS CODE STATUS. PT TO REMAIN FULL CODE. NG PLACED WITH IMMEDIATE RETURN OF MELISSA BLOOD. HEMODYNAMICS REMAIN STABLE. PT REMAINED ON THE UNIT.
--- NOTE | 2020-04-18 04:09 | NUR ---
AT APPROXIMATELY 2230 NURSE WAS TRYING TO HELP PATIENT TO BEDSIDE COMMODE WHEN PATIENT HAD SYNCOPAL TYPE EVENT. NURSE NOTED WHAT APPEARED TO BE DARK, TARRY, STOOL IN BED WITH PATIENT. HELP CALLED WITH RAPID RESPONSE INITIATED. PATIENTS VITAL SIGNS WERE STABLE AND PATIENT QUICKLY REGAINED COMPOSURE. ORDERS RECEIVED FOR STAT CT OF ABDOMEN, CBC, CHEST XRAY, AND VELASQUEZ CATHETER. PATIENT BROUGHT BACK TO ROOM WITH RESULTS OF CT AND CHEST XRAY REVIEWED. AROUND 0200 NURSE WAS ATTEMPTING TO CLEAN UP PATIENTS STOOL WHEN PATIENT STARTED VOMITING DARK LIQUID. RAPID RESPONSE INITIATED WITH PATIENT QUICKLY SUCTIONED. ORDERS RECEIVED FOR STAT CBC, NG TUBE, AND BLEED SCAN, BLOOD TRANSFUSION AND TRANSFER TO ICU WHEN ROOM AVAILABLE.
[2020-04-18 04:50] LABS: HEMATOCRIT 31.2 % (42.0-52.0); HEMOGLOBIN 10.1 gm/dL (14.0-18.0); MCH 28.9 pg (26.0-34.0); MCHC 32.5 g/dL (28.0-37.0); MCV 88.8 fL (80.0-100.0); RBC 3.51 mil/uL (4.50-6.00); RDW 14.2 % (10.5-14.5); WBC 26.3 thou/uL (4.0-11.0)
[2020-04-18 05:05] LABS: INR 1.4; PROTIME 14.2 Seconds (9.3-11.4)
--- NOTE | 2020-04-18 08:01 | NUR ---
LATE ENTRY FROM 04/17 ON-GOING ASSESSMENT: HIRAM REVIEWED CHART AND SPOKE WITH ATTENDING. PT CONTINUES TO HAVE SHORTNESS OF BREATH AND IS ON IV STEROIDS AND ANTIBIOTICS. CM SPOKE WITH ATTENDING AND PLAN IS TO CONTINUE TREATMENT AND IF NO IMPROVEMENT POSSIBLY DISCUSS PALLIATIVE CARE. HIRAM REACHED OUT TO PATIENTS DAUGHTER TO DISCUSS. SHE REPORTS SHE UNDERSTANDS HER FATHER IS NOT SHOWING MUCH IMPROVEMENT YET AND UNDERSTANDS CHOICES OF SNF OR POSSIBLY PALLIATIVE CARE. SHE REPORTS SHE WANTS TO CONTINUE TO SEE IF HE PROGRESSES AND THEN HAVE PHYSICIAN SPEAK WITH HER FATHER WHILE SHE IS THERE TO DISCUSS GOALS OF CARE IN SOON. HIRAM WILL CONTINUE TO FOLLOW.
--- NOTE | 2020-04-18 19:07 | NUR ---
Patient drowsy this am. NO further bloody stool or emesis. GI here to eval. 1 unit of blood finsished up at 0845. Patient went to GI lab for an EGD at 1045, back at 1145. Drowsy but wakes easily. Keeping NPO. Patient wanting water over and over. Discussed with patient the plan of care. Reminded patient of NPO status. Heart rate and rhythm stable. See documentation on interventions for assessment details.
[2020-04-19] VITALS (19 sets, daily range): BP systolic 109–185; BP diastolic 42–64
[2020-04-19 05:34] LABS: HEMATOCRIT 30.9 % (42.0-52.0); HEMOGLOBIN 10.1 gm/dL (14.0-18.0); MCHC 32.7 g/dL (28.0-37.0); MCV 88.7 fL (80.0-100.0); RBC 3.48 mil/uL (4.50-6.00); RDW 14.3 % (10.5-14.5)
[2020-04-19 05:45] LABS: CALCIUM 8.2 mg/dL (8.5-10.1); CREATININE 1.5 mg/dL (0.7-1.3); MAGNESIUM 3.6 mg/dL (1.8-2.4); POTASSIUM 4.5 mmol/L (3.5-5.1)
--- NOTE | 2020-04-19 12:06 | PATH ---
[facility] [address] [place] [address] PATHOLOGY RPT PROCEDURE Name: JUAQUIN HOFFMAN Room #: 247-P ADM IN M.R.#: [id number] Admission: 04/06/20 Date of : 43 Discharge: Report #: [id number] Path Case #: [id number] [facility] Accession Number: [id number] . 01 Material submitted: . supraglottis - RIGHT SUPRAGLOTTIS. Modifiers: right . 01 Clinician provided ICD-10: J98.01 J44.1 . 01 Clinical history: . COPD; COPD EXACERBATION, PUI COVID . 02 Diagnosis: Right supraglottis, biopsy: - FOCAL MODERATE SQUAMOUS DYSPLASIA. - NO DEFINITE INVASION IDENTIFIED. (IUV:richelle; 04/18/2020) MBR 04/19/2020 1125 Local . 02 Comment: A properly controlled p16 immunohistochemical stain is performed on block A1 and it shows no diffuse reactivity present. . Co-review: Dr. Magda Ashby. . (IUV:disability insurance claim examiner; 04/18/2020) . 02 Electronically signed: . Marizol Finney MD, Pathologist NPI- [id number] . 01 Gross description: . The specimen is received in formalin, labeled "Juaquin Hoffman, right supraglottis" and consists of multiple fragments of srivastava tissue measuring 1.8 x 0.6 x 0.3 cm in aggregate which are entirely submitted in A1. (SDY; 04/17/2020) SYU/SYU 04/17/2020 1434 Local . 02 Pathologist provided ICD-10: J38.7 . 02 CPT . 786813, [id number] Specimen Comment: A courtesy copy of this report has been sent to [phone] [address] PATHOLOGY RPT PROCEDURE Name: JUAQUIN HOFFMAN Room #: 247-P [facility] IN [facility]#: [id number] Admission: 04/06/20 Date of : 43 Discharge: Report #: [id number] Path Case #: [id number] Specimen Comment: [id number], Specimen Comment: Report sent to DR GARRIDO / DR DUKES Performed at: 01 [facility] Taras Sage [address] [place] [address] [address], [place], [place] [id number] MD Enrico Lyons MD Phone: [phone] Performed at: [address], [place], [place] [id number] MD Marizol Finney MD Phone: [phone]
--- NOTE | 2020-04-19 17:16 | NUR ---
CONSULTED TO PLACE A PICC FOR A PATIENT IN ICU STARTING ON TPN. ORDER AND CONSENT NOTED. A #5F TRIPLE LUMEN PICC WAS PLACED PER HOSPITAL POLICY AFTER A BEDSIDE TIMEOUT WAS COMPLETED. PICC WAS TRIMMED TO 40CM AND ADVANCED WITHOUT DIFFICULTY. A STAT CHEST XRAY CONFIRMED LINE WAS IN PROPER POSITION FOR USE
--- NOTE | 2020-04-19 19:21 | NUR ---
Patient very drowsy and withdrawn today. speech therapy came by and patient failed swallow eval. will need video study tomorrow. Patient states that he cannot swallow. Denies pain. taking ice chips sparingly. Patient having a lot of coughing with a lot of sputum. Using suction hisself. Updated daughter with plan of care. Report given to 2N RN. Patient will transfer to [facility].
--- NOTE | 2020-04-19 20:36 | NUR ---
pt tx to ccu via bed with rn to room 205
--- NOTE | 2020-04-20 03:57 | NUR ---
PATIENT TRANSFERRED FROM ICU AT APPROXIMATELY 2100. PATIENT CONTINUES TO BE NPO WITH ICE CHIPS ALLOWED. PATIENT ATTEMPTED TO TAKE LIQUID MEDICATION PO BUT WAS UNSUCCESSFUL.
[2020-04-20 04:06] VITALS: BP 134/53
[2020-04-20 05:20] LABS: ALBUMIN 2.1 g/dL (3.4-5.0); CALCIUM 7.9 mg/dL (8.5-10.1); CREATININE 1.5 mg/dL (0.7-1.3); MAGNESIUM 3.3 mg/dL (1.8-2.4); PHOSPHORUS 3.8 mg/dL (2.5-4.9); POTASSIUM 4.5 mmol/L (3.5-5.1); TOTAL BILIRUBIN 0.6 mg/dL (0.2-1.0); TOTAL PROTEIN 4.2 g/dL (6.4-8.2)
[2020-04-20 07:50] VITALS: BP 145/69
[2020-04-20 11:30] VITALS: BP 132/67
[2020-04-20 11:35] VITALS: BP 99/54
[2020-04-20 15:25] VITALS: BP 141/66
--- NOTE | 2020-04-20 19:35 | NUR ---
ASSUMED CARE AT CHANGE OF SHIFT. ALERTX4, SOFT SPOKED DUE TO VOCAL PARALIYSIS, HEAD NODS WITH YES/NO QUESTIONS, 3L NASAL CANNULA, PT ABLE TO SELF SUCTION SECREATIONS, DENIES PAIN, NSR ON TELE. VELASQUEZ WITH DARK LOIS URINE. TOLERATING TPN. ST PLACED PT ON NPO WITH SPARING ICE CHIPS. CALL LIGHT IN REACH. STAFF TO ANTICIPATE NEEDS.
[2020-04-20 21:05] LABS: HISTOPLASMA MYCELIAL-CF Negative (Neg:<1:2)
[2020-04-20 23:36] VITALS: BP 158/64
--- NOTE | 2020-04-21 03:40 | NUR ---
ASSUMED CARE AT 1900. PT ALERT , ORIENTED . PT LOOK LETHERIGIC AND UNABLE TO VERBALIZE NEEDS KNOWN. PT RESPONDS BY NODING HIS HEAD. PT SELF SUCTIONS FOR THE INCREASE ORAL SECRETIONS. NPO DUE TO FAILED SWALLOW STUDY. PT HAS A FLAT AFFECT AND WITHDRAWN. DENIES ANY PAIN. SR ON THE MONITOR. WILL CONTINUE TO MONITOR AND FOLLOW POC.
[2020-04-21 03:57] VITALS: BP 129/56
[2020-04-21 05:47] LABS: HEMATOCRIT 27.6 % (42.0-52.0); MCH 29.4 pg (26.0-34.0); MCHC 32.7 g/dL (28.0-37.0); MCV 89.7 fL (80.0-100.0); RBC 3.07 mil/uL (4.50-6.00); RDW 14.7 % (10.5-14.5); WBC 12.5 thou/uL (4.0-11.0)
[2020-04-21 05:59] LABS: CALCIUM 7.8 mg/dL (8.5-10.1); CREATININE 1.2 mg/dL (0.7-1.3); PHOSPHORUS 3.1 mg/dL (2.5-4.9); POTASSIUM 5.1 mmol/L (3.5-5.1)
[2020-04-21 07:45] VITALS: BP 151/50
[2020-04-21 11:40] VITALS: BP 142/48
[2020-04-21 11:55] VITALS: BP 121/55
--- NOTE | 2020-04-21 12:24 | NUR ---
Case discussed with the care team. The attending to discuss dx,prognosis, and plan of care with pt/his dtr Elizabeth. Possible hospice referral pending decisions about his plan of care. Pt is on TPN and iv atb. Will follow.
[2020-04-21 15:45] VITALS: BP 148/64
[2020-04-21 17:02] LABS: T-SPOT.TB Negative
--- NOTE | 2020-04-21 17:44 | NUR ---
ASSUMED CARE OF PT AT SHIFT CHANGE. ASSESSMENTS CHARTED. MEDS GIVEN PER AUG. PT A&OX4, NO C/O PAIN. PT ON 3L NC, LOOSE PRODUCTIVE COUGH, USING YOUNKER SELF. PT TOLD STAFF AND DAUGHTER HE WANTS TO GO TO HOSPICE, D/T RETURN OF CANCER. NOTIFIED DR. NORTON. WILL CONTINUE TO MONITOR AND FOLLOW POC.
[2020-04-21 19:30] VITALS: BP 92/59
[2020-04-22] VITALS (7 sets, daily range): BP systolic 108–131; BP diastolic 47–67
[2020-04-22 05:43] LABS: EOSINOPHILS 0.3 % (0.0-3.0); HEMATOCRIT 27.1 % (42.0-52.0); HEMOGLOBIN 8.9 gm/dL (14.0-18.0); PLATELET COUNT 41 thou/uL (150-400); RBC 3.02 mil/uL (4.50-6.00)
[2020-04-22 05:45] LABS: ABSOLUTE NEUTROPHILS 8.2 thou/uL (1.4-8.2); BASOPHILS 0.1 % (0.0-2.0); LYMPHOCYTES 7.6 % (24.0-44.0); MCH 29.6 pg (26.0-34.0); MCV 89.7 fL (80.0-100.0); MONOCYTES 3.5 % (1.0-8.0); POLYS 88.5 % (36.0-66.0); RDW 14.4 % (10.5-14.5); WBC 9.3 thou/uL (4.0-11.0)
[2020-04-22 05:56] LABS: CALCIUM 7.4 mg/dL (8.5-10.1); CREATININE 1.2 mg/dL (0.7-1.3); MAGNESIUM 2.6 mg/dL (1.8-2.4); PHOSPHORUS 3.2 mg/dL (2.5-4.9); POTASSIUM 4.3 mmol/L (3.5-5.1)
[2020-04-22] MEDS ORDERED: MORPHINE SU0.2 MG/ML PO (13:55)
--- NOTE | 2020-04-22 16:15 | NUR ---
ASSESSMENT CHARTED - PT NOT ABLE TO TAKE PO MEDICATION DUE TO NPO STATUS. IV MEDS GIVEN ORDERED - PT GIVEN MORPHINE X 2 DOSES FOR CO'S OF BACK PAIN WITH MOD RELIEF. TPN AND FLUIDS CONTINUE ORDERED. DR ALEXANDRA TO VISIT WITH PATIENT AND DAUGHTER THIS AM - HOSPICE CONSULTED - NEEDED INFORMATION SNET TO HOSPICE - FAMILY THOUGHT THEY MAY WNAT PATIENT HOME TODAY BUT HAVE DECIDED TO WAIT UNTIL TOMORROW AM TO HAVE PATIENT TRANSPORTED HOME. PT WITH NO CO'S OF NAUSEA. SANDI VENCES USED PRN FOR EXCESS SPUTUM- SPIT. PT UNABLE TO SWALLOW - VOICE HARSH AND DIFFICULT TO UNDERSTAND. PT APPEARS TO BE SLEPPING AT THE PRESENT TIME AND APPEARS COMFORTABLE.
--- NOTE | 2020-04-23 00:48 | NUR ---
Care assumed of patient at 1915: Patient laying in bed at start of shift. Alert and oriented x2. Coarse, productive cough. Shortness of breath. Using younker to suction mouth. O2 3L/min per NC continuously. Offered re-positioning, patient declined. Patient NPO. Reporting back pain several times and requesting Morphine. Med administered per MD order. Patient has PICC to right upper arm. Carter cath to DD. Patient currently requesting "a coke and a cupcake". Education provided regarding NPO status. Patient laying quietly in bed at this time.
[2020-04-23 03:00] VITALS: BP 126/55
[2020-04-23 05:00] LABS: ALBUMIN 1.8 g/dL (3.4-5.0); CALCIUM 7.6 mg/dL (8.5-10.1); MAGNESIUM 2.3 mg/dL (1.8-2.4); PHOSPHORUS 2.9 mg/dL (2.5-4.9); POTASSIUM 4.2 mmol/L (3.5-5.1)
[2020-04-23 08:20] VITALS: BP 168/76
--- NOTE | 2020-04-23 12:48 | NUR ---
assessment as charted - tpn and d5 tapered of this am prior to discharge. pt using yanker for secretions independantly. remined npo - unable to swallow meds. pt to home with hospice this am - left unit via ambulance and tranported to home address where daughter and hospice nurse were awating - all dme present im home for patient. called patient after discharge to ensure he made it home and had all that he needed - his daughter stated that he was home and hospice nurse was present.
== END 2020-04-23 11:35 | disposition hospice, home (50) | DRG 871 ==
LOC: ER 18:45 → EROBS 22:46 → 2N 22:46 → 4S 22:46 → 2N 04-07 13:15 → 4S 04-07 22:23 → 2N 04-16 14:26 → ICU 04-18 06:34 → 2N 04-19 21:54
PROVIDERS: Emergency Medicine; Hospitalist; Internal Medicine; Internal Medicine Pulmonary Disease; Nurse Practitioner; Nurse Practitioner Family; Specialist; ADMIT Hospitalist; ATTEND Hospitalist
PROC: 0CBT8ZX Excision of Right Vocal Cord, Via Natural or Artificial Opening Endoscopic, Diagnostic (ICD-10-PCS; 2020-04-14)
PROC: 0DJ08ZZ Inspection of Upper Intestinal Tract, Via Natural or Artificial Opening Endoscopic (ICD-10-PCS; principal; 2020-04-18)
PROC: 0W3P8ZZ Control Bleeding in Gastrointestinal Tract, Via Natural or Artificial Opening Endoscopic (ICD-10-PCS; principal; 2020-04-18)
PROC: 30233N1 Transfusion of Nonautologous Red Blood Cells into Peripheral Vein, Percutaneous Approach (ICD-10-PCS; principal; 2020-04-18)
PROC: B548ZZA Ultrasonography of Superior Vena Cava, Guidance (ICD-10-PCS; 2020-04-19)
PROC: 02HV33Z Insertion of Infusion Device into Superior Vena Cava, Percutaneous Approach (ICD-10-PCS; 2020-04-19)
DX: A41.9 Sepsis, unspecified organism (principal); J96.21 Acute and chronic respiratory failure with hypoxia; K25.4 Chronic or unspecified gastric ulcer with hemorrhage; J15.6 Pneumonia due to other Gram-negative bacteria; E43 Unspecified severe protein-calorie malnutrition; J44.1 Chronic obstructive pulmonary disease with (acute) exacerbation; N17.9 Acute kidney failure, unspecified; J44.0 Chronic obstructive pulmonary disease with (acute) lower respiratory infection; D62 Acute posthemorrhagic anemia; K92.1 Melena; R13.10 Dysphagia, unspecified; I25.10 Atherosclerotic heart disease of native coronary artery without angina pectoris; E78.5 Hyperlipidemia, unspecified; M16.0 Bilateral primary osteoarthritis of hip; M54.2 Cervicalgia; M54.9 Dorsalgia, unspecified; G89.29 Other chronic pain; N40.0 Benign prostatic hyperplasia without lower urinary tract symptoms; K20.90 Esophagitis, unspecified without bleeding; K22.2 Esophageal obstruction; I12.9 Hypertensive chronic kidney disease with stage 1 through stage 4 chronic kidney disease, or unspecified chronic kidney disease; K26.9 Duodenal ulcer, unspecified as acute or chronic, without hemorrhage or perforation; J38.00 Paralysis of vocal cords and larynx, unspecified; R49.0 Dysphonia; N18.9 Chronic kidney disease, unspecified; E11.22 Type 2 diabetes mellitus with diabetic chronic kidney disease; E11.65 Type 2 diabetes mellitus with hyperglycemia; R63.4 Abnormal weight loss; Z66 Do not resuscitate; Z20.828 Contact with and (suspected) exposure to other viral communicable diseases; I25.2 Old myocardial infarction; Z95.5 Presence of coronary angioplasty implant and graft; Z79.82 Long term (current) use of aspirin; Z79.899 Other long term (current) drug therapy; Z87.891 Personal history of nicotine dependence; Z85.118 Personal history of other malignant neoplasm of bronchus and lung; Z68.28 Body mass index [BMI] 28.0-28.9, adult
CPT/HCPCS: 10078; 10081; 10194; 10195; 27000; 50010; 50101; 62110; 62900; 70005